=== PATIENT | male | born 1985 | race Two or more races ===

== ENCOUNTER 2020-06-28 23:13 | Outpatient (CLI) | payer OTHER | END 2020-06-28 23:14 | disposition home or self-care (01) | LOC: PPH VACUNA 23:13 | DX: Z23 Encounter for immunization (principal) ==

== ENCOUNTER 2020-07-20 05:57 | Outpatient (CLI) | payer OTHER | END 2020-07-20 06:00 | disposition home or self-care (01) | LOC: PPH VACUNA 05:57 | DX: Z23 Encounter for immunization (principal) ==

== ENCOUNTER 2021-02-16 08:00 | Outpatient (CLI) | payer OTHER | END 2021-02-16 08:30 | disposition home or self-care (01) | LOC: PPH VACUNA 08:00 | PROVIDERS: ATTEND Emergency Medicine Pediatric Emergency Medicine | DX: Z23 Encounter for immunization (principal) ==